=== PATIENT | male | born 1980 | race Two or more races ===

== ENCOUNTER 2020-03-24 18:32 | Emergency (ER) | payer OTHER ==
[~2020-03-24] VITALS: Ht 180.3 cm; Wt 99.8 kg
[2020-03-24 18:44] VITALS: BP 157/91
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
[2020-03-24] MEDS ORDERED: IBUPROFEN600 M1 ORAL (21:01)
[2020-03-24 21:07] VITALS: BP 145/86
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
== END 2020-03-24 21:07 | disposition home or self-care (01) ==
LOC: EMR 18:53
DX: S39.012A Strain of muscle, fascia and tendon of lower back, initial encounter (principal); M25.511 Pain in right shoulder; V43.52XA Car driver injured in collision with other type car in traffic accident, initial encounter; Y92.411 Interstate highway as the place of occurrence of the external cause
CPT/HCPCS: 99283